=== PATIENT | male | born 1955 | race Caucasian/White ===

== ENCOUNTER 2018-10-14 12:56 | Outpatient (REF) | payer BC, SELFPAY ==
[2018-10-14 19:11] LABS: HCT 44.7 % (40.0-50.0); HGB 15.5 g/dL (13.5-17.5); Mean Corp. HGB Concentration 34.7 g/dL (32.0-36.0); Mean Corpuscular Hemoglobin 32.2 pg (27.0-33.0); Mean Corpuscular Volume 92.7 fL (80-95); Platelet Count 182 x1000/uL (130-400); RBC 4.82 m/cumm (4.50-6.00); RBC Distribution Width 12.2 % (11.8-14.1); White Blood Cell Count 6.41 k/cumm (4.4-10.8)
[2018-10-14 19:16] LABS: BUN 14 mg/dL (7-18); CREATININE 0.86 mg/dL (0.70-1.30); Chloride 104 mmol/L (98-107); Glucose 96 mg/dL (70-100); Potassium 4.1 mmol/L (3.5-5.1); Sodium 143 mmol/L (136-145)
== END 2018-10-14 13:16 ==
LOC: NCHCN 12:56
PROVIDERS: PCP Internal Medicine; Visit Provider Internal Medicine
DX: Z00.00 Encounter for general adult medical examination without abnormal findings (principal); E78.2 Mixed hyperlipidemia; M26.69 Other specified disorders of temporomandibular joint
CPT/HCPCS: 80048; 85027

== ENCOUNTER 2019-10-05 19:04 | Outpatient (REF) | payer MEDICARE, BC, SELFPAY ==
[2019-10-05 20:33] LABS: HCT 46.1 % (40.0-50.0); HGB 16.2 g/dL (13.5-17.5); Mean Corp. HGB Concentration 35.1 g/dL (32.0-36.0); Mean Corpuscular Hemoglobin 32.1 pg (27.0-33.0); Mean Corpuscular Volume 91.3 fL (80-95); Mean Platelet Volume 11.3 fL (8.0-11.0); Platelet Count 172 x1000/uL (130-400); RBC 5.05 m/cumm (4.50-6.00); RBC Distribution Width 12.4 % (11.8-14.1); White Blood Cell Count 5.68 k/cumm (4.4-10.8)
[2019-10-05 21:15] LABS: ALT 46 U/L (16-63); Anion Gap 7.6 mmol/L (3-11); BUN 14 mg/dL (7-18); CO2 30.4 mmol/L (21.0-32.0); CREATININE 0.95 mg/dL (0.70-1.30); Calcium 8.7 mg/dL (8.5-10.1); Calculated LDL 49 mg/dL (<100); Chloride 105 mmol/L (98-107); Cholesterol 109 mg/dL (<200); Glucose 99 mg/dL (74-106); HDL Cholesterol 43 mg/dL (40-60); Potassium 4.1 mmol/L (3.5-5.1); Sodium 143 mmol/L (136-145); Triglyceride 85 mg/dL (<150)
[2019-10-05 21:45] LABS: Creatine Kinase 193 U/L (39-308)
== END 2019-10-05 19:24 ==
LOC: NCHCN 19:04
PROVIDERS: PCP Internal Medicine; Visit Provider Internal Medicine
DX: I10 Essential (primary) hypertension (principal); E78.2 Mixed hyperlipidemia; Z79.01 Long term (current) use of anticoagulants; I82.90 Acute embolism and thrombosis of unspecified vein
CPT/HCPCS: 80048; 80061; 82550; 85027; 84460

== ENCOUNTER 2020-04-11 19:14 | Outpatient (REF) | payer MEDICARE, BC, SELFPAY ==
[2020-04-11 20:18] LABS: HCT 46.4 % (40.0-50.0); MCH 32.3 pg (27.0-33.0); MCHC 34.5 % (32.0-36.0); MCV 93.5 fL (80-95); MPV 11.1 fL (8.0-11.0); Platelet Count 169 10^3/uL (130-400); RBC 4.96 10^6/uL (4.36-5.78); RDW 11.9 % (11.8-14.1); RDW-SD 41.1 fL; WBC 6.68 10^3/uL (4.4-10.8)
== END 2020-04-11 19:34 ==
LOC: NCHCN 19:14
PROVIDERS: PCP Internal Medicine; Visit Provider Internal Medicine
DX: I82.90 Acute embolism and thrombosis of unspecified vein (principal); Z79.01 Long term (current) use of anticoagulants
CPT/HCPCS: 85027

== ENCOUNTER 2020-09-06 15:07 | Outpatient (REF) | payer MEDICARE, BC, SELFPAY ==
[2020-09-06 18:44] LABS: Abs Immature Grans 0.01 10^3/uL (0.0-0.06); Absolute Basophil Count 0.04 10^3/uL (0.0-0.2); Absolute Eosinophil Count 0.01 10^3/uL (0.0-0.7); Absolute Lymphocyte Count 1.94 10^3/uL (1.2-3.4); Absolute Monocyte Count 0.39 10^3/uL (0.1-0.8); Absolute Neutrophil Count 5.21 10^3/uL (1.2-6.7); Basophils % 0.5; Eosinophils % 0.1; HCT 46.9 % (40.0-50.0); HGB 16.3 g/dL (13.5-17.5); Immature Grans % 0.1; Lymphocytes % 25.5; MCH 31.7 pg (27.0-33.0); MCHC 34.8 % (32.0-36.0); MCV 91.1 fL (80-95); Monocytes % 5.1; Neutrophils % 68.7; Nucleated RBC 0 %; Platelet Count 174 10^3/uL (130-400); RBC 5.15 10^6/uL (4.36-5.78); RDW 11.9 % (11.8-14.1); RDW-SD 39.7 fL
[2020-09-06 18:56] LABS: ALT 46 U/L (16-63); AST 34 U/L (15-37); Albumin 4.5 g/dL (3.4-5.0); Alkaline Phosphatase 74 U/L (46-116); Anion Gap 10.3 mmol/L (3-11); BUN 12 mg/dL (7-18); Bilirubin, Total 1.3 mg/dL (0.2-1.0); CO2 29.7 mmol/L (21.0-32.0); Calcium 9.1 mg/dL (8.5-10.1); Chloride 105 mmol/L (98-107); Glucose 136 mg/dL (74-106); Potassium 3.9 mmol/L (3.5-5.1); Sodium 145 mmol/L (136-145); Total Protein 7.7 g/dL (6.4-8.2)
[2020-09-07 16:58] LABS: PSA, Screening 1.2 ng/mL (0.0-4.5)
== END 2020-09-06 15:08 | disposition home or self-care (01) ==
LOC: NCHCN 15:07
PROVIDERS: PCP Internal Medicine; Visit Provider Physician Assistant
DX: N42.89 Other specified disorders of prostate (principal); R10.31 Right lower quadrant pain; Z12.5 Encounter for screening for malignant neoplasm of prostate
CPT/HCPCS: 80053; 84153; 85025

== ENCOUNTER 2020-10-05 08:42 | Outpatient (REF) | payer MEDICARE, BC, SELFPAY ==
[2020-10-05 19:22] LABS: ALT 44 U/L (16-63); Calculated LDL 42 mg/dL (<100); Cholesterol 95 mg/dL (<200); HDL Cholesterol 42 mg/dL (40-60); Triglyceride 56 mg/dL (<150)
== END 2020-10-05 08:43 | disposition home or self-care (01) ==
LOC: NCHCN 08:42
PROVIDERS: PCP Internal Medicine; Visit Provider Internal Medicine
DX: I10 Essential (primary) hypertension (principal); E78.2 Mixed hyperlipidemia
CPT/HCPCS: 80061; 84460

== ENCOUNTER 2021-04-11 19:37 | Outpatient (REF) | payer MEDICARE, SELFPAY ==
[2021-04-11 19:19] LABS: Abs Immature Grans 0.02 10^3/uL (0.0-0.06); Absolute Basophil Count 0.05 10^3/uL (0.0-0.2); Absolute Eosinophil Count 0.07 10^3/uL (0.0-0.7); Absolute Lymphocyte Count 2.38 10^3/uL (1.2-3.4); Absolute Monocyte Count 0.66 10^3/uL (0.1-0.8); Absolute Neutrophil Count 4.13 10^3/uL (1.2-6.7); Basophils % 0.7; HCT 47.2 % (40.0-50.0); HGB 15.8 g/dL (13.5-17.5); Immature Grans % 0.3; Lymphocytes % 32.6; MCH 31.4 pg (27.0-33.0); MCHC 33.5 % (32.0-36.0); MCV 93.8 fL (80-95); MPV 10.8 fL (8.0-11.0); Neutrophils % 56.4; Nucleated RBC 0 %; Platelet Count 186 10^3/uL (130-400); RBC 5.03 10^6/uL (4.36-5.78); RDW 11.9 % (11.8-14.1); RDW-SD 41.1 fL; WBC 7.31 10^3/uL (4.4-10.8)
[2021-04-11 19:35] LABS: ALT 45 U/L (16-63); Anion Gap 6.2 mmol/L (3-11); BUN 14 mg/dL (7-18); CO2 31.8 mmol/L (21.0-32.0); CREATININE 0.9 mg/dL (0.70-1.30); Calcium 8.8 mg/dL (8.5-10.1); Chloride 103 mmol/L (98-107); Glucose 86 mg/dL (74-106); LDL CHOLESTEROL 38 mg/dL (<100); Potassium 4.1 mmol/L (3.5-5.1); Sodium 141 mmol/L (136-145)
[2021-04-12 17:59] LABS: PSA, Screening 1.2 ng/mL (0.0-4.5)
[2021-04-15 11:27] LABS: Hepatitis C Ab w Rflx HCV PCR Negative (Negative)
== END 2021-04-11 19:38 | disposition home or self-care (01) ==
LOC: NCHCN 19:37
PROVIDERS: PCP Internal Medicine; Visit Provider Internal Medicine
DX: N42.9 Disorder of prostate, unspecified (principal); I87.2 Venous insufficiency (chronic) (peripheral); Z71.89 Other specified counseling; Z12.5 Encounter for screening for malignant neoplasm of prostate; Z11.59 Encounter for screening for other viral diseases
CPT/HCPCS: 80048; 83721; 84153; 86803; 84460; 85025

== ENCOUNTER 2022-11-12 13:15 | Outpatient (REF) | payer MEDICARE, BC, SELFPAY ==
[2022-11-12 20:21] LABS: Abs Immature Grans 0.02 10^3/uL (0.0-0.06); Absolute Basophil Count 0.06 10^3/uL (0.0-0.2); Absolute Eosinophil Count 0.04 10^3/uL (0.0-0.7); Absolute Lymphocyte Count 2.03 10^3/uL (1.2-3.4); Absolute Monocyte Count 0.48 10^3/uL (0.1-0.8); Absolute Neutrophil Count 3.72 10^3/uL (1.2-6.7); Basophils % 0.9; Eosinophils % 0.6; HCT 42.5 % (40.0-50.0); HGB 14.4 g/dL (13.5-17.5); Immature Grans % 0.3; MCHC 33.9 % (32.0-36.0); MCV 92 fL (80-95); MPV 10.7 fL (8.0-11.0); Monocytes % 7.6; Neutrophils % 58.6; Platelet Count 184 10^3/uL (130-400); RBC 4.64 10^6/uL (4.36-5.78); RDW 11.8 % (11.8-14.1); RDW-SD 39.6 fL; WBC 6.35 10^3/uL (4.4-10.8)
[2022-11-12 20:55] LABS: ALT 41 U/L (16-63); AST 30 U/L (15-37); Albumin 4.3 g/dL (3.4-5.0); Alkaline Phosphatase 60 U/L (46-116); Anion Gap 6.7 mmol/L (3-11); BUN 29 mg/dL (7-18); Bilirubin, Total 1.1 mg/dL (0.2-1.0); CO2 31.3 mmol/L (21.0-32.0); CREATININE 1.2 mg/dL (0.70-1.30); Calcium 9.1 mg/dL (8.5-10.1); Calculated LDL 39 mg/dL (<100); Chloride 105 mmol/L (98-107); Cholesterol 92 mg/dL (<200); Estimated GFR 65.87 (mL/min/1.73m2); Glucose 103 mg/dL (74-106); HDL Cholesterol 41 mg/dL (40-60); Potassium 4.9 mmol/L (3.5-5.1); Sodium 143 mmol/L (136-145); Total Protein 7.9 g/dL (6.4-8.2); Triglyceride 60 mg/dL (<150)
== END 2022-11-12 13:16 | disposition home or self-care (01) ==
LOC: NCHCN 13:15
PROVIDERS: PCP Internal Medicine; Visit Provider Internal Medicine
DX: I10 Essential (primary) hypertension (principal); I48.91 Unspecified atrial fibrillation; E78.2 Mixed hyperlipidemia; Z79.02 Long term (current) use of antithrombotics/antiplatelets
CPT/HCPCS: 80053; 80061; 85025

== ENCOUNTER 2024-02-10 16:19 | Outpatient (REF) | payer MEDICARE, BC, SELFPAY ==
[2024-02-10 20:31] LABS: ALT 31 U/L (16-63); Anion Gap 12.6 mmol/L (3-11); BUN 15 mg/dL (7-18); CO2 27.4 mmol/L (21.0-32.0); CREATININE 1.1 mg/dL (0.70-1.30); Calculated LDL 32 mg/dL (<100); Chloride 103 mmol/L (98-107); Cholesterol 89 mg/dL (<200); Creatine Kinase 121 U/L (39-308); Estimated GFR 72.22 (mL/min/1.73m2); Glucose 98 mg/dL (74-106); HDL Cholesterol 45 mg/dL (40-60); Potassium 3.8 mmol/L (3.5-5.1); Sodium 143 mmol/L (136-145); Triglyceride 60 mg/dL (<150)
== END 2024-02-10 16:20 | disposition home or self-care (01) ==
LOC: NCHCN 16:19
PROVIDERS: PCP Internal Medicine; Visit Provider Internal Medicine
DX: I10 Essential (primary) hypertension (principal)
CPT/HCPCS: 80048; 80061; 82550; 84460

== ENCOUNTER 2025-01-30 17:26 | Outpatient (REF) | payer MEDICARE, BC, SELFPAY ==
[2025-01-30 19:52] LABS: Abs Immature Grans 0.02 10^3/uL (0.0-0.06); HCT 43.3 % (40.0-50.0); HGB 14.8 g/dL (13.5-17.5); Immature Grans % 0.3 %; MCH 30.7 pg (27.0-33.0); MCHC 34.2 % (32.0-36.0); MCV 90 fL (80-95); MPV 10.6 fL (8.0-11.0); Platelet Count 191 10^3/uL (130-400); RBC 4.82 10^6/uL (4.36-5.78); RDW 11.9 % (11.8-14.1); RDW-SD 38.8 fL; WBC 6.76 10^3/uL (4.4-10.8)
[2025-01-30 20:07] LABS: ALT 38 U/L (16-63); AST 29 U/L (15-37); Albumin 4.4 g/dL (3.4-5.0); Alkaline Phosphatase 69 U/L (46-116); Anion Gap 6.1 mmol/L (3-11); BUN 19 mg/dL (7-18); Bilirubin, Total 1.0 mg/dL (0.2-1.0); CO2 31.9 mmol/L (21.0-32.0); Calcium 9.0 mg/dL (8.5-10.1); Calculated LDL 44 mg/dL (<100); Chloride 103 mmol/L (98-107); Cholesterol 106 mg/dL (<200); Estimated GFR 71.77 (mL/min/1.73m2); Glucose 92 mg/dL (74-106); HDL Cholesterol 43 mg/dL (>or=40); Potassium 4.0 mmol/L (3.5-5.1); Sodium 141 mmol/L (136-145); Total Protein 7.9 g/dL (6.4-8.2); Triglyceride 98 mg/dL (<150)
== END 2025-01-30 17:27 | disposition home or self-care (01) ==
LOC: NCHCN 17:26
PROVIDERS: PCP Internal Medicine; Visit Provider Internal Medicine
DX: Z79.01 Long term (current) use of anticoagulants (principal); I67.9 Cerebrovascular disease, unspecified
CPT/HCPCS: 80053; 80061; 85025

== ENCOUNTER → 2025-02-15 12:55 | Outpatient (BNVA) | payer MEDICARE, BC, SELFPAY | PROVIDERS: PCP Internal Medicine; Referring Provider Internal Medicine; Visit Provider Registered Nurse | DX: I47.20 Ventricular tachycardia, unspecified (principal); I10 Essential (primary) hypertension; Z79.01 Long term (current) use of anticoagulants; Z79.02 Long term (current) use of antithrombotics/antiplatelets; Z79.899 Other long term (current) drug therapy | CPT/HCPCS: 99204; 93005 ==